=== PATIENT | female | born 1935 | race Asian ===

== ENCOUNTER 2018-06-15 10:37 | Inpatient (IN) | payer MEDICARE, MEDICAID ==
[~2018-06-15] VITALS: Ht 154.9 cm; Wt 51.4 kg
[~2018-06-15 10:37] MED LIST: BUSCOPAN PO
[2018-06-15] MEDS ORDERED: AMLO-150 PO (11:19)
[2018-06-15] MEDS ORDERED: TRAZ50TA66 PO (11:19)
[2018-06-15] MEDS ORDERED: SODIUM CHLORIDE FLUSH 10ML SYR IVF ONE (12:00)
[2018-06-15 12:23] LABS: BASOPHILS # (AUTO) 0.02 x10^3/uL (0-0.1); BASOPHILS % (AUTO) 0 % (0-1); EOSINOPHILS # (AUTO) 0.02 x10^3/uL (0-0.4); EOSINOPHILS % (AUTO) 0 % (1-7); LYMPHOCYTES # (AUTO) 1.22 x10^3/uL (1-3.4); LYMPHOCYTES % (AUTO) 15 % (22-44); MD NO; MEAN CORPUSCULAR HEMOGLOBIN 30.4 pg (27.0-34.8); MEAN CORPUSCULAR HGB CONC 33.6 g/dL (32.4-35.8); MEAN CORPUSCULAR VOLUME 90.4 fL (80-100); MONOCYTES # (AUTO) 0.32 x10^3/uL (0.2-0.8); MONOCYTES % (AUTO) 4 % (2-9); NEUTROPHILS # (AUTO) 6.31 x10^3/uL (1.8-6.8); NEUTROPHILS % (AUTO) 80 % (42-75); PLATELET COUNT 246 x10^3/uL (130-400); RED BLOOD COUNT 4.34 x10^6/uL (3.82-5.3); RED CELL DISTRIBUTION WIDTH 12.9 % (9.6-15.2)
[2018-06-15 12:26] LABS: ALANINE AMINOTRANSFERASE 24 U/L (12-78); ALBUMIN 4.3 g/dL (3.4-5.0); ANION GAP 8 mmol/L (5-15); CALCIUM 9.1 mg/dL (8.5-10.1); CHLORIDE 103 mmol/L (98-107)
[2018-06-15 12:28] LABS: ALKALINE PHOSPHATASE 56 U/L (45-117); BILIRUBIN,TOTAL 0.7 mg/dL (0.2-1.0)
[2018-06-15 12:32] LABS: MICROSCOPIC AUTO
[2018-06-15 12:39] LABS: CULTURE INDICATED? NO
[2018-06-15] MEDS ORDERED: OMNIPAQUE 350 MG/ML, 100ML BOTTLE ONE (13:31)
[2018-06-15] MEDS ORDERED: ONDANSETRON 2MG/ML, 2ML ONE (13:55)
[2018-06-15] MEDS ORDERED: HYDROmorphone 2 MG/ML, 1ML ONE (13:55)
[2018-06-15] MEDS ORDERED: ONDANSETRON 2MG/ML, 2ML IVPush ONE (14:00)
[2018-06-15] MEDS ORDERED: HYDROmorphone 2 MG/ML, 1ML IVPush PRN (14:00)
[2018-06-15] MEDS ORDERED: hydrALAzine 20 MG/ML, 1ML IVPush PRN (15:00)
[2018-06-15] MEDS ORDERED: morphine SULFATE 10 MG/ML, 1ML IVPush PRN (15:00)
[2018-06-15] MEDS ORDERED: ONDANSETRON 2MG/ML, 2ML IVPush PRN (15:00)
[2018-06-15] MEDS ORDERED: ACETAMINOPHEN 325 MG TABLET PO PRN (15:00)
[2018-06-15 16:00] VITALS: BP 159/72
[2018-06-15] MEDS: SODIUM CHLORIDE 0.9% 1,000 ML IV SCH (16:28)
[2018-06-15] MEDS: CEFTRIAXONE PMX 1GM/50ML 50 ML IV SCH (17:28)
[2018-06-15 18:39] LABS: MICROSCOPIC AUTO
[2018-06-15 18:48] LABS: CULTURE INDICATED? NO
[2018-06-15 20:28] VITALS: BP 165/84
[2018-06-15 20:56] VITALS: BP 167/93
[2018-06-15] MEDS: TRAZODONE 50MG TABLET PO SCH (21:07)
[2018-06-16 02:19] VITALS: BP 154/74
[2018-06-16] MEDS: SODIUM CHLORIDE 0.9% 1,000 ML IV SCH ×2 (04:30→16:47)
[2018-06-16 04:44] LABS: ALANINE AMINOTRANSFERASE 19 U/L (12-78); ALBUMIN 3.2 g/dL (3.4-5.0); ANION GAP 8 mmol/L (5-15); CALCIUM 7.3 mg/dL (8.5-10.1); CHLORIDE 107 mmol/L (98-107)
[2018-06-16 04:47] LABS: ALKALINE PHOSPHATASE 45 U/L (45-117); BILIRUBIN,TOTAL 0.6 mg/dL (0.2-1.0); TOTAL PROTEIN 6.1 g/dL (6.4-8.2)
[2018-06-16 04:52] LABS: BASOPHILS # (AUTO) 0.02 x10^3/uL (0-0.1); BASOPHILS % (AUTO) 0 % (0-1); EOSINOPHILS # (AUTO) 0.01 x10^3/uL (0-0.4); EOSINOPHILS % (AUTO) 0 % (1-7); LYMPHOCYTES # (AUTO) 2.15 x10^3/uL (1-3.4); LYMPHOCYTES % (AUTO) 31 % (22-44); MD NO; MEAN CORPUSCULAR HEMOGLOBIN 30.9 pg (27.0-34.8); MEAN CORPUSCULAR HGB CONC 34.2 g/dL (32.4-35.8); MEAN CORPUSCULAR VOLUME 90.5 fL (80-100); MEAN PLATELET VOLUME 7.1 fL (7.4-10.4); MONOCYTES # (AUTO) 0.62 x10^3/uL (0.2-0.8); MONOCYTES % (AUTO) 9 % (2-9); NEUTROPHILS # (AUTO) 4.07 x10^3/uL (1.8-6.8); NEUTROPHILS % (AUTO) 59 % (42-75); PLATELET COUNT 220 x10^3/uL (130-400); RED BLOOD COUNT 3.65 x10^6/uL (3.82-5.3); RED CELL DISTRIBUTION WIDTH 12.9 % (9.6-15.2)
[2018-06-16] MEDS: OMEPRAZOLE 20 MG CAPSULE.DR PO SCH (05:25)
[2018-06-16] MEDS: PANTOPROZOLE 40MG TABLET PO SCH (07:30)
[2018-06-16 08:17] VITALS: BP 105/57
[2018-06-16] MEDS: AMLODIPINE 5 MG TABLET PO SCH (08:21)
[2018-06-16] MEDS ORDERED: ENOXAPARIN 40 MG/0.4 ML SQ SCH (09:00)
[2018-06-16 14:13] VITALS: BP 112/66
[2018-06-16] MEDS: CEFTRIAXONE PMX 1GM/50ML 50 ML IV SCH (16:47)
[2018-06-16 19:25] VITALS: BP 146/67
[2018-06-16] MEDS: TRAZODONE 50MG TABLET PO SCH (20:38)
[2018-06-17 00:54] VITALS: BP 153/69
[2018-06-17] MEDS: SODIUM CHLORIDE 0.9% 1,000 ML IV SCH ×2 (05:39→20:25)
[2018-06-17] MEDS: OMEPRAZOLE 20 MG CAPSULE.DR PO SCH (05:51)
[2018-06-17 07:45] VITALS: BP 145/76
[2018-06-17] MEDS: AMLODIPINE 5 MG TABLET PO SCH (09:09)
[2018-06-17] MEDS: PANTOPROZOLE 40MG TABLET PO SCH (09:09)
[2018-06-17 13:24] VITALS: BP 123/65
[2018-06-17] MEDS: CEFTRIAXONE PMX 1GM/50ML 50 ML IV SCH (16:19)
[2018-06-17 20:21] VITALS: BP 147/70
[2018-06-17] MEDS: TRAZODONE 50MG TABLET PO SCH (20:29)
[2018-06-18 01:15] VITALS: BP 133/66
[2018-06-18] MEDS: OMEPRAZOLE 20 MG CAPSULE.DR PO SCH (05:24)
[2018-06-18 08:05] VITALS: BP_SYST 144; BP_SYST 148; BP_DIAS 70; BP_DIAS 74
[2018-06-18] MEDS ORDERED: CALCIUM GLUCONATE 9.2 MEQ in SODIUM CHLORIDE 0.9% 100 ML IV ONE (08:30)
[2018-06-18] MEDS ORDERED: CLARITHROMYCIN 500 MG TABLET PO SCH (09:00)
[2018-06-18] MEDS ORDERED: PANTOPROZOLE 40MG TABLET PO SCH (09:00)
[2018-06-18] MEDS ORDERED: AMOXICILLIN 500 MG CAPSULE PO SCH (09:00)
[2018-06-18] MEDS: SODIUM CHLORIDE 0.9% 1,000 ML IV SCH (09:45)
[2018-06-18] MEDS: AMLODIPINE 5 MG TABLET PO SCH (09:45)
[2018-06-18] MEDS ORDERED: PANT40TA5 PO (12:01)
[2018-06-18] MEDS ORDERED: CLAR500T PO (12:01)
[2018-06-18] MEDS ORDERED: AMOX-291 PO (12:01)
[2018-06-18 12:12] LABS: ANION GAP 9 mmol/L (5-15); CALCIUM 7.6 mg/dL (8.5-10.1); CHLORIDE 111 mmol/L (98-107); CREATININE 0.94 mg/dL (0.55-1.02)
[2018-06-18] MEDS ORDERED: POTASSIUM CHLORIDE 20 MEQ TAB.ER.PRT PO ONE ×2 (13:00→15:00)
[2018-06-18 14:00] VITALS: BP 127/78
[2018-06-18] MEDS: CEFTRIAXONE PMX 1GM/50ML 50 ML IV SCH (15:24)
[2018-06-19] MEDS ORDERED: OMEPRAZOLE 20 MG CAPSULE.DR PO SCH (06:00)
== END 2018-06-18 18:40 | DRG 872 ==
LOC: SUATTDRO 14:32 → ED 14:50 → EDIP 14:51 → 3NW 15:40 → ED 15:55
PROVIDERS: ADMIT Internal Medicine; ATTEND Internal Medicine
PROC: 0T9B70Z Drainage of Bladder with Drainage Device, Via Natural or Artificial Opening (ICD-10-PCS; principal; 2018-06-16)
DX: A41.9 Sepsis, unspecified organism (principal); N39.0 Urinary tract infection, site not specified; E87.2 Acidosis; M48.54XA Collapsed vertebra, not elsewhere classified, thoracic region, initial encounter for fracture; M48.56XA Collapsed vertebra, not elsewhere classified, lumbar region, initial encounter for fracture; K86.3 Pseudocyst of pancreas; K80.20 Calculus of gallbladder without cholecystitis without obstruction; B96.81 Helicobacter pylori [H. pylori] as the cause of diseases classified elsewhere; I10 Essential (primary) hypertension; M81.0 Age-related osteoporosis without current pathological fracture; N32.89 Other specified disorders of bladder; R39.15 Urgency of urination; G47.00 Insomnia, unspecified; Z87.891 Personal history of nicotine dependence
CPT/HCPCS: 36415; 74022; 74177; 76700; 80048; 80053; 81001; 83605; 83735; 84100; 84132; 84443; 85014; 85018; 85025; 86677; 87040; 99285; G0378; J0610; J0696; J1170; J1650; J2405; Q9967; J0360; J7030

== ENCOUNTER 2018-07-04 10:30 | Day surgery (SDC) | payer MEDICARE, MEDICAID ==
[~2018-07-04] VITALS: Ht 160 cm; Wt 57.0 kg
[~2018-07-04 10:30] MED LIST changes: +AMLO-150 PO; +AMOX-291 PO; +CLAR500T PO; +PANT40TA5 PO; +TRAZ50TA66 PO
[2018-07-04 11:15] VITALS: BP 155/76
[2018-07-04] MEDS ORDERED: LACTATED RINGERS 1,000 ML IV SCH (11:41)
[2018-07-04] MEDS ORDERED: LABETALOL 5MG/ML, 20ML IV PRN (14:00)
[2018-07-04] MEDS ORDERED: PROMETHAZINE 12.5 MG SUPP PR PRN (14:00)
[2018-07-04] MEDS ORDERED: PROPOFOL 10 MG/ML, 20ML ONE ×2 (14:00)
[2018-07-04] MEDS ORDERED: ONDANSETRON 2MG/ML, 2ML IV PRN (14:00)
[2018-07-04] MEDS ORDERED: MORPHINE SULFATE 4 MG/ML, 1ML IVPush PRN (14:00)
[2018-07-04] MEDS ORDERED: PROMETHAZINE 25 MG/ML, 1ML IV PRN (14:00)
[2018-07-04] MEDS ORDERED: PROMETHAZINE 25 MG SUPP PR PRN (14:00)
[2018-07-04] MEDS ORDERED: EPHEDRINE 50 MG/ML, 1ML IVPush PRN (14:00)
[2018-07-04] MEDS ORDERED: OXYcodone 5 MG/5 ML ORAL.SOL UDC PO PRN (14:00)
[2018-07-04] MEDS ORDERED: EPHEDRINE 50 MG/ML, 1ML IM PRN (14:00)
[2018-07-04] MEDS ORDERED: FENTANYL PF 100 MCG/2ML IV PRN (14:00)
== END 2018-07-04 16:15 | disposition home or self-care (01) ==
LOC: OUT 10:30
PROVIDERS: ATTEND Internal Medicine
DX: K86.2 Cyst of pancreas (principal); K86.89 Other specified diseases of pancreas; I10 Essential (primary) hypertension; F41.9 Anxiety disorder, unspecified; M19.90 Unspecified osteoarthritis, unspecified site; D64.9 Anemia, unspecified; Z87.891 Personal history of nicotine dependence; Z79.899 Other long term (current) drug therapy; Z98.890 Other specified postprocedural states
CPT/HCPCS: 43242; 82378; 93005; J2704; J7120